=== PATIENT | female | born 1995 | race Caucasian/White ===

== ENCOUNTER 2023-01-06 11:08 | Emergency (ER) | payer OTHER ==
[~2023-01-06] VITALS: Ht 160 cm; Wt 49.4 kg
[2023-01-06] MEDS ORDERED: PRENATAL + DHA1 EAC1 PO (12:22)
[2023-01-06 13:53] LABS: HEMATOCRIT 35.8 % (36.0-45.00); HEMOGLOBIN 12.2 g/dL (12.0-15.00); MEAN CELL VOLUME 79.9 fL (80.00-100.00); MEAN CORPUSCULAR HEMOGLOBIN 27.2 pg (27.00-32.0); MEAN CORPUSCULAR HGB CONC 34.1 g/dl (32.0-36.0); PLATELET COUNT 382 K/uL (150-450); RED BLOOD COUNT 4.48 M/uL (4.00-6.00); RED CELL DISTRIBUTION WIDTH 12.7 % (11.5-14.5)
[2023-01-06] MEDS ORDERED: DUI500 PO (15:17)
[2023-01-06] MEDS ORDERED: ZOFRAN8 MG PO (15:17)
[2023-01-06] MEDS ORDERED: PEPCID AC20 MG PO (15:17)
== END 2023-01-06 15:57 | disposition home or self-care (01) ==
LOC: ER 11:08
PROVIDERS: General Practice
DX: O23.31 Infections of other parts of urinary tract in pregnancy, first trimester (principal); N39.0 Urinary tract infection, site not specified; Z3A.10 10 weeks gestation of pregnancy

== ENCOUNTER 2023-06-24 20:27 | Inpatient (IN) | payer OTHER ==
[~2023-06-24] VITALS: Ht 160 cm; Wt 60.8 kg
[~2023-06-24 20:27] MED LIST: DUI500 PO; PEPCID AC20 MG PO; PRENATAL + DHA1 EAC1 PO; ZOFRAN8 MG PO
[2023-06-24] MEDS ORDERED: BETAMETHASONE ACETATE,SOD PHOS 30 MG/5 ML ML ONE (21:09)
[2023-06-24] MEDS ORDERED: RINGERS SOLUTION,LACTATED 1,000 ML IV SCH (21:30)
[2023-06-24] MEDS ORDERED: BETAMETHASONE ACETATE,SOD PHOS 30 MG/5 ML ML IM ONE (21:30)
[2023-06-24 22:00] LABS: URINE APPEARANCE Clear; URINE BILIRRUBIN Negative (NEGATIVE); URINE BLOOD Negative; URINE COLOR Yellow; URINE GLUCOSE Negative (NEGATIVE); URINE LEUKOCYTE Small; URINE NITRATE Negative; URINE PROTEIN Negative (NEGATIVE); URINE UROBILINOGEN 0.2 E.U./dl
[2023-06-24 22:03] LABS: URINE BACTERIA 5325.8 uL (0.0-1933); URINE EPITHELIAL CELLS 21.6 uL (0.0-38.8); URINE RBC 2.4 uL (0.0-20.8); URINE WBC 42.6 uL (0.0-23.2)
[2023-06-24 22:11] LABS: MEAN CELL VOLUME 77.1 fL (80.00-100.00); MEAN CORPUSCULAR HGB CONC 33.2 g/dl (32.0-36.0); PLATELET COUNT 271 K/uL (150-450); RED BLOOD COUNT 2.55 M/uL (4.00-6.00); RED CELL DISTRIBUTION WIDTH 14.1 % (11.5-14.5)
[2023-06-24 22:12] LABS: MEAN CORPUSCULAR HEMOGLOBIN 25.4 pg (27.00-32.0)
[2023-06-24 22:17] LABS: HEMOGLOBIN 6.5 g/dL (12.0-15.00)
[2023-06-24 22:18] LABS: HEMATOCRIT 19.7 % (36.0-45.00)
[2023-06-24 22:26] LABS: URINE YEAST FEW /hpf
[2023-06-24 23:19] LABS: MEAN CELL VOLUME 76.6 fL (80.00-100.00); MEAN CORPUSCULAR HEMOGLOBIN 25.7 pg (27.00-32.0); MEAN CORPUSCULAR HGB CONC 33.7 g/dl (32.0-36.0); PLATELET COUNT 255 K/uL (150-450); RED BLOOD COUNT 2.56 M/uL (4.00-6.00)
[2023-06-24 23:20] LABS: HEMATOCRIT 19.6 % (36.0-45.00); HEMOGLOBIN 6.6 g/dL (12.0-15.00)
[2023-06-25] MEDS ORDERED: NIFEDIPINE 20 MG CAPSULE PO ONE (06:00)
[2023-06-25] MEDS ORDERED: NIFEDIPINE 10 MG CAPSULE PO PRN (06:15)
[2023-06-25] MEDS ORDERED: NIFEDIPINE 10 MG CAPSULE PO SCH (06:15)
[2023-06-25] MEDS ORDERED: CITRIC ACID/SODIUM CITRATE 30 ML BLIST.PACK PO ONE (12:00)
[2023-06-25 17:49] LABS: HEMATOCRIT 26.8 % (36.0-45.00); MEAN CELL VOLUME 78.4 fL (80.00-100.00); MEAN CORPUSCULAR HGB CONC 33.4 g/dl (32.0-36.0); PLATELET COUNT 332 K/uL (150-450); RED BLOOD COUNT 3.42 M/uL (4.00-6.00); RED CELL DISTRIBUTION WIDTH 14.7 % (11.5-14.5)
[2023-06-25 17:50] LABS: HEMOGLOBIN 8.9 g/dL (12.0-15.00)
[2023-06-25] MEDS ORDERED: BETAMETHASONE ACETATE,SOD PHOS 30 MG/5 ML ML IM ONE (21:30)
[2023-06-26 11:05] LABS: HEMATOCRIT 26.3 % (36.0-45.00); HEMOGLOBIN 9.1 g/dL (12.0-15.00); MEAN CELL VOLUME 79.3 fL (80.00-100.00); MEAN CORPUSCULAR HEMOGLOBIN 27.3 pg (27.00-32.0); MEAN CORPUSCULAR HGB CONC 34.4 g/dl (32.0-36.0); PLATELET COUNT 261 K/uL (150-450); RED BLOOD COUNT 3.32 M/uL (4.00-6.00); RED CELL DISTRIBUTION WIDTH 14.8 % (11.5-14.5)
[2023-06-26 18:24] LABS: MEAN CELL VOLUME 78.8 fL (80.00-100.00); MEAN CORPUSCULAR HGB CONC 33.9 g/dl (32.0-36.0); PLATELET COUNT 243 K/uL (150-450); RED BLOOD COUNT 3.18 M/uL (4.00-6.00); RED CELL DISTRIBUTION WIDTH 15.1 % (11.5-14.5)
[2023-06-26 18:32] LABS: MEAN CORPUSCULAR HEMOGLOBIN 26.7 pg (27.00-32.0)
[2023-06-26 18:33] LABS: HEMOGLOBIN 8.5 g/dL (12.0-15.00)
[2023-06-27 06:44] LABS: HEMATOCRIT 24.2 % (36.0-45.00); MEAN CELL VOLUME 78.6 fL (80.00-100.00); MEAN CORPUSCULAR HGB CONC 33.9 g/dl (32.0-36.0); PLATELET COUNT 240 K/uL (150-450); RED BLOOD COUNT 3.08 M/uL (4.00-6.00); RED CELL DISTRIBUTION WIDTH 15.1 % (11.5-14.5)
[2023-06-27 06:51] LABS: HEMOGLOBIN 8.2 g/dL (12.0-15.00); MEAN CORPUSCULAR HEMOGLOBIN 26.6 pg (27.00-32.0)
[2023-06-27] MEDS ORDERED: SOD FERRIC GLUC COMPLX/SUCROSE 125 MG in 0.9 % SODIUM CHLORIDE 100 ML IV SCH (09:00)
== END 2023-06-27 10:22 | disposition home or self-care (01) | DRG 831 ==
LOC: OBS/DEL 20:27 → LDR 06-25 07:55 → OBS/DEL 06-25 07:55 → LDR 06-27 10:22
PROVIDERS: ADMIT Obstetrics & Gynecology; ATTEND Obstetrics & Gynecology
PROC: 30233N1 Transfusion of Nonautologous Red Blood Cells into Peripheral Vein, Percutaneous Approach (ICD-10-PCS; principal; 2023-06-25)
PROC: 4A1HXCZ Monitoring of Products of Conception, Cardiac Rate, External Approach (ICD-10-PCS; 2023-06-25)
PROC: BY4FZZZ Ultrasonography of Third Trimester, Single Fetus (ICD-10-PCS; 2023-06-25)
PROC: BU4CZZZ Ultrasonography of Uterus and Ovaries (ICD-10-PCS; 2023-06-25)
DX: O99.013 Anemia complicating pregnancy, third trimester (principal); O60.03 Preterm labor without delivery, third trimester; D64.9 Anemia, unspecified; O36.8130 Decreased fetal movements, third trimester, not applicable or unspecified; O36.5930 Maternal care for other known or suspected poor fetal growth, third trimester, not applicable or unspecified; O26.843 Uterine size-date discrepancy, third trimester; Z3A.33 33 weeks gestation of pregnancy; Z20.822 Contact with and (suspected) exposure to COVID-19

== ENCOUNTER 2023-07-30 05:33 | Inpatient (IN) | payer OTHER ==
[~2023-07-30] VITALS: Ht 152.4 cm; Wt 63.0 kg
[2023-07-30] MEDS ORDERED: IRON325 MG PO (06:42)
[2023-07-30 07:26] LABS: URINE APPEARANCE Cloudy; URINE BACTERIA 2668.2 uL (0.0-1933); URINE BILIRRUBIN Negative (NEGATIVE); URINE BLOOD Negative; URINE COLOR Yellow; URINE EPITHELIAL CELLS 22.8 uL (0.0-38.8); URINE GLUCOSE Negative (NEGATIVE); URINE LEUKOCYTE Negative; URINE NITRATE Negative; URINE PROTEIN Negative (NEGATIVE); URINE RBC 5.3 uL (0.0-20.8); URINE WBC 21.3 uL (0.0-23.2)
[2023-07-30 07:51] LABS: HEMATOCRIT 30.7 % (36.0-45.00); HEMOGLOBIN 10.2 g/dL (12.0-15.00); MEAN CELL VOLUME 80.8 fL (80.00-100.00); MEAN CORPUSCULAR HEMOGLOBIN 26.9 pg (27.00-32.0); MEAN CORPUSCULAR HGB CONC 33.3 g/dl (32.0-36.0); PLATELET COUNT 185 K/uL (150-450)
[2023-07-30 07:56] LABS: RED CELL DISTRIBUTION WIDTH 21.8 % (11.5-14.5)
[2023-07-30] MEDS ORDERED: OXYTOCIN 20 UNITS/500ML RL PIGGYBAG IV ONE ×2 (12:19→12:30)
[2023-07-30] MEDS ORDERED: PROMETHAZINE HCL 25 MG/ML AMPUL ONE (16:21)
[2023-07-30] MEDS ORDERED: MEPERIDINE HCL/PF 50 MG/ML VIAL IV STA (16:26)
[2023-07-30] MEDS ORDERED: PROMETHAZINE HCL 25 MG/ML AMPUL IV STA (16:27)
[2023-07-30] MEDS ORDERED: OXYTOCIN 20 UNITS/1000ML RL PIGGYBAG IV ONE (20:00)
[2023-07-30] MEDS ORDERED: ERYTHROMYCIN BASE 1 GM TUBE OP ONE (20:00)
[2023-07-30] MEDS ORDERED: CHLORHEXIDINE GLUCONATE 120 ML BOTTLE TOP ONE (20:00)
[2023-07-30] MEDS ORDERED: CHLORHEXIDINE GLUCONATE 120 ML BOTTLE TOP SCH (22:15)
[2023-07-30] MEDS ORDERED: ERYTHROMYCIN BASE 1 GM TUBE OP SCH (22:15)
[2023-07-30] MEDS ORDERED: OXYTOCIN 1,000 ML IV SCH (22:15)
[2023-07-30] MEDS ORDERED: ACETAMINOPHEN 500 MG GEL..CAP PO PRN (22:15)
[2023-07-31 00:10] LABS: ABG PH 7.309 (7.35-7.45); ABG PO2 29.8 mmHg (80-100); ABG pCO2 43.1 mmHg (35-45)
[2023-07-31 00:11] LABS: BICARBONATE 21.2 mmol/l (23-25); SaO2 48.7 %; Tco2 22.5 mmol/l; o2 21 %
[2023-07-31 03:10] LABS: HEMATOCRIT 31.3 % (36.0-45.00); MEAN CELL VOLUME 80.2 fL (80.00-100.00); MEAN CORPUSCULAR HGB CONC 33.9 g/dl (32.0-36.0); PLATELET COUNT 181 K/uL (150-450); RED CELL DISTRIBUTION WIDTH 21.8 % (11.5-14.5)
[2023-07-31 03:12] LABS: HEMOGLOBIN 10.6 g/dL (12.0-15.00); MEAN CORPUSCULAR HEMOGLOBIN 27.1 pg (27.00-32.0)
[2023-07-31] MEDS ORDERED: PNV,CALCIUM 72/IRON/FOLIC ACID 1 TAB TABLET PO SCH (09:00)
== END 2023-08-01 14:15 | disposition home or self-care (01) | DRG 807 ==
LOC: LDR 05:33 → OB/GYN 21:44
PROVIDERS: ADMIT Obstetrics & Gynecology; ATTEND Obstetrics & Gynecology
PROC: 10E0XZZ Delivery of Products of Conception, External Approach (ICD-10-PCS; principal; 2023-07-30)
PROC: 0KQM0ZZ Repair Perineum Muscle, Open Approach (ICD-10-PCS; 2023-07-30)
PROC: 4A1HXCZ Monitoring of Products of Conception, Cardiac Rate, External Approach (ICD-10-PCS; 2023-07-30)
DX: O70.1 Second degree perineal laceration during delivery (principal); Z37.0 Single live birth; Z3A.38 38 weeks gestation of pregnancy; Z20.822 Contact with and (suspected) exposure to COVID-19